=== PATIENT | female | born 1995 | race Two or more races ===

== ENCOUNTER 2024-09-19 20:50 | Emergency (ER) | payer OTHER ==
[~2024-09-19] VITALS: Ht 152.4 cm; Wt 54.0 kg
[2024-09-20] MEDS ORDERED: DIPHENHYDRAMINE HCL 50 MG/ML VIAL 1ML IV STA (00:18)
[2024-09-20] MEDS ORDERED: METHYLPREDNISOLONE SOD SUCC 125 MG VIAL IV STA (00:19)
[2024-09-20] MEDS ORDERED: EPINEPHRINE HCL/PF 1 MG/ML AMPUL SUBCUTANEO STA (00:19)
[2024-09-20] MEDS ORDERED: FAMOTIDINE/PF 20 MG/2 ML VIAL IV PUSH STA (00:19)
[2024-09-20] MEDS ORDERED: EPINEPHRINE HCL/PF 1 MG/ML AMPUL ONE (00:22)
[2024-09-20] MEDS ORDERED: FAMOTIDINE/PF 20 MG/2 ML VIAL ONE (00:23)
[2024-09-20] MEDS ORDERED: DIPHENHYDRAMINE HCL 50 MG/ML VIAL 1ML ONE (00:23)
[2024-09-20] MEDS ORDERED: METHYLPREDNISOLONE SOD SUCC 125 MG VIAL ONE (00:23)
[2024-09-20] MEDS ORDERED: ZYRTEC10 M3 PO (01:39)
[2024-09-20] MEDS ORDERED: MEDROL8 MG PO (01:39)
[2024-09-20] MEDS ORDERED: PEPCID40 MG PO (01:39)
== END 2024-09-20 01:48 ==
LOC: ER 20:51
DX: L50.9 Urticaria, unspecified (principal); R21 Rash and other nonspecific skin eruption